=== PATIENT | male | born 1980 | race American Indian/Alaskan Native ===

== ENCOUNTER 2016-12-24 21:40 | Outpatient (CLI) | payer MEDICARE ==
[2016-12-28 13:38] LABS: Hematocrit 36.1 % (35.5-45.6); Hemoglobin 11.9 gm/dl (11.8-15.2); Red Blood Count 4.53 M/mm3 (3.65-5.03); White Blood Count 5.7 K/mm3 (4.5-11.0)
[2016-12-28 13:39] LABS: Basophils % (Auto) 0.2 % (0.0-1.8); Eosinophils % (Auto) 2.3 % (0.0-4.3); Mean Corpuscular HGB Conc 33 % (32-34); Mean Corpuscular Hemoglobin 26 pg (28-32); Mean Corpuscular Volume 80 fl (84-94); Platelet Count 449 K/mm3 (140-440); Red Cell Distribution Width 14.8 % (13.2-15.2)
[2016-12-28 13:45] LABS: Anion Gap 18 mmol/L; Blood Urea Nitrogen 8 mg/dL (9-20); Carbon Dioxide 24 mmol/L (22-30); Chloride 103.6 mmol/L (98-107); Potassium 4.2 mmol/L (3.6-5.0); Sodium 141 mmol/L (137-145)
[2016-12-28 13:46] LABS: Alanine Aminotransferase 23 units/L (7-56); Albumin 3.6 g/dL (3.9-5); Albumin/Globulin Ratio 0.9 %; Alkaline Phosphatase 60 units/L (35-129); Bilirubin,Total 0.3 mg/dL (0.1-1.2); Calcium 9.1 mg/dL (8.4-10.2); Glucose 59 mg/dL (75-100); Total Protein 7.8 g/dL (6.3-8.2)
== END 2016-12-24 21:41 | disposition home or self-care (01) ==
LOC: LABHHL 21:40
PROVIDERS: ATTEND Internal Medicine Infectious Disease
DX: A49.8 Other bacterial infections of unspecified site (principal); Z16.12 Extended spectrum beta lactamase (ESBL) resistance
CPT/HCPCS: 36415; 80053; 85025; 86140